=== PATIENT | male | born 1945 | race Caucasian/White ===

== ENCOUNTER 2017-06-05 08:48 | Day surgery (SDC) | payer MEDICARE ==
[~2017-06-05] VITALS: Ht 188 cm; Wt 104.3 kg
[2017-06-05] MEDS ORDERED: SLEEP AID25 MG PO (09:12)
== END 2017-06-05 10:53 | disposition home or self-care (01) ==
LOC: ORSCSDS 08:48
PROVIDERS: Orthopaedic Surgery
PROC: 01N50ZZ Release Median Nerve, Open Approach (ICD-10-PCS; principal; 2017-06-05 10:00)
DX: G56.01 Carpal tunnel syndrome, right upper limb (principal); Z87.891 Personal history of nicotine dependence
CPT/HCPCS: J2250; J3010; J7120